=== PATIENT | female | born 1995 | race American Indian/Alaskan Native ===

== ENCOUNTER 2017-06-17 10:50 | Emergency (ER) | payer OTHER ==
[2017-06-17 10:57] VITALS: RESP 18; O2SAT 100
[2017-06-17] MEDS ORDERED: Sodium Chloride 0.9% 1,000 ML IV ONE (12:13)
[2017-06-17] MEDS ORDERED: Sodium Chloride 0.9% 1,000 ML ONE (12:29)
--- NOTE | 2017-06-17 12:30 | C.PDOC ---
History Of Present Illness 22 y/o female presents to ED with complaints of abdominal pain for 2 days with associated nausea, vomiting and diarrhea. Patient denies blood in stool, dysuria , hematuria, back pain, fever, chills or any other complaints at this time. Time Seen by Provider: 06/17/17 12:07 Chief Complaint (Nursing): Abdominal Pain History Per: Patient History/Exam Limitations: no limitations Onset/Duration Of Symptoms: Days Current Symptoms Are (Timing): Still Present Past Medical History Reviewed: Historical Data, Nursing Documentation, Vital Signs Vital Signs: Last Vital Signs Temp 99.6 F 06/17/17 15:21 Pulse 70 06/17/17 15:21 Resp 18 06/17/17 15:21 BP 142/76 06/17/17 15:21 Pulse Ox 100 06/17/17 15:24 - Medical History PMH: Back Problems (Scoliosis) Surgical History: No Surg Hx - [facility] Procedures MANUAL ASSIST DELIV NEC (11/23/13) REPAIR OB LACERATION NEC (11/23/13) Family History: States: No Known Family Hx - Social History Hx Tobacco Use: Yes Hx Alcohol Use: No Hx Substance Use: No - Immunization History Hx Tetanus Toxoid Vaccination: No Hx Influenza Vaccination: No Hx Pneumococcal Vaccination: No Review Of Systems Constitutional: Negative for: Fever, Chills Gastrointestinal: Positive for: Nausea, Vomiting, Abdominal Pain, Diarrhea. Negative for: Hematochezia Genitourinary: Negative for: Dysuria, Hematuria, Vaginal Bleeding Skin: Negative for: Rash Neurological: Negative for: Weakness, Numbness Physical Exam - Physical Exam Appears: Non-toxic, No Acute Distress Skin: Normal Color, Warm, Dry, No Rash Head: Atraumatic, Normacephalic Oral Mucosa: Moist Neck: Normal ROM, Supple Cardiovascular: Rhythm Regular Respiratory: Normal Breath Sounds, No Rales, No Rhonchi, No Wheezing Gastrointestinal/Abdominal: Soft, Tenderness (Mild non focal), No Guarding, No Rebound Back: No CVA Tenderness Extremity: Normal ROM, Capillary Refill (<2 seconds) Neurological/Psych: Oriented x3, Normal Motor, Normal Sensation ED Course And Treatment - Laboratory Results Result Diagrams: 06/17/17 12:30 06/17/17 12:30 O2 Sat by Pulse Oximetry: 100 (RA) Pulse Ox Interpretation: Normal Medical Decision Making Medical Decision Making: pt noted to be in er. iup confirmed. lmp "last month" pt tolerating po in er. advise outpt f/u and return precautions. pt asking for dc. refuses additonal iv fluids and antiemetic, minimal suprapubic ttp Disposition - Disposition Referrals: [facility] [Outside] [facility]. [employer] [facility] [Outside] Disposition: HOME/ ROUTINE Disposition Time: 15:16 Condition: STABLE Additional Instructions: please follow up with obgyn. return to er with worsening symptoms or concerns. Instructions: Threatened Miscarriage (ED), Hyperemesis Gravidarum (ED), Dehydration (ED) Forms: [facility] (Turkish), Work Excuse - Clinical Impression Clinical Impression: Abdominal pain, Threatened miscarriage - Scribe Statement The provider has reviewed the documentation as recorded by the Scribgaby Pollock All medical record entries made by the Angelitaibe were at my direction and personally dictated by me. I have reviewed the chart and agree that the record accurately reflects my personal performance of the history, physical exam, medical decision making, and the department course for this patient. I have also personally directed, reviewed, and agree with the discharge instructions and disposition.
[2017-06-17 12:35] LABS: BASO % 0.7 % (0.0-2.0); EOS # 0.1 K/uL (0.0-0.7); EOS % 1.4 % (0.0-4.0); HEMOGLOBIN 12.8 g/dL (11.0-16.0); LYMPH # 1.6 K/uL (1.0-4.3); LYMPH % 29.4 % (20.0-40.0); MEAN CORPUSCULAR HEMOGLOBIN 31.8 pg (27.0-31.0); MEAN CORPUSCULAR HGB CONC 34.1 g/dL (33.0-37.0); MEAN PLATELET VOLUME 7.9 fL (7.2-11.7); MONO # 0.7 K/uL (0.0-0.8); NEUT # 3.1 K/uL (1.8-7.0); NEUT % 55.5 % (50.0-75.0); NRBC % 0.2 % (0.0-2.0); RBC 4.01 Mil/uL (3.80-5.20); RED CELL DISTRIBUTION WIDTH 12.5 % (11.5-14.5); WHITE BLOOD COUNT 5.6 K/uL (4.8-10.8)
[2017-06-17 12:37] LABS: HCG,QUALITATIVE URINE POSITIVE (NEGATIVE); MEAN CELL VOLUME 93.3 fL (81.0-99.0)
[2017-06-17 12:42] LABS: INR 1.2
[2017-06-17 12:43] LABS: SQUAMOUS EPITHIAL 8 /hpf (0-5); URINE BACTERIA RARE (<OCC); URINE BILIRUBIN NEGATIVE (NEGATIVE); URINE BLOOD NEGATIVE (NEGATIVE); URINE CLARITY Clear (Clear); URINE COLOR Amber (YELLOW); URINE GLUCOSE (UA) NORMAL (Normal); URINE LEUKOCYTE ESTERASE NEG Leu/uL (Negative); URINE NITRATE NEGATIVE (NEGATIVE); URINE PROTEIN 1+ mg/dL (NEGATIVE)
[2017-06-17 12:50] LABS: ALB/GLOB RATIO 1.1 (1.0-2.1); ALBUMIN 3.8 g/dL (3.5-5.0); ALT/SGPT 19 U/L (9-52); AST/SGOT 19 U/L (14-36); BLOOD UREA NITROGEN 11 mg/dL (7-17); CALCIUM 8.3 mg/dl (8.6-10.4); GFR AFRICAN-AMERICAN > 60; GFR NON-AFRICAN AMERICAN > 60; LIPASE 58 U/L (23-300)
--- NOTE | 2017-06-17 14:42 | US ---
HISTORY: abd pain and COMPARISON: No relevant prior exams are available for comparison. TECHNIQUE: Grayscale and color Doppler sonographic images were obtained of the pelvis utilizing transvaginal approach. FINDINGS: UTERUS: Anteverted and normal in size measuring 10 x 5.1 x 6.4 cm cm. Cystic structure noted within the endometrial canal measuring 1.4 cm containing a pole with crown-rump length measuring 0.2 cm corresponding to a gestational age of 5 weeks 5 days. heartbeat of 113 beats per minute was seen. Normal-size yolk sac noted. CERVIX: Closed and measures 3.3 cm RIGHT OVARY: Measures 1.9 x 1.5 x 2.2 cm. Multiple follicles noted.Normal flow. LEFT OVARY: Measures 3.7 x 2.5 x 3.3 cm. Sonographically unremarkable Normal flow. FREE FLUID: No significant free fluid noted. OTHER FINDINGS: None IMPRESSION: Single live intrauterine gestation corresponding to a gestational age of 5 weeks 5 days.
[2017-06-17 15:22] VITALS: BP 142/76; PULSE 70; TEMP 99.6
== END 2017-06-17 15:30 | disposition home or self-care (01) ==
LOC: C.ER 10:50
DX: O20.0 Threatened abortion (principal); R10.9 Unspecified abdominal pain; Z3A.01 Less than 8 weeks gestation of pregnancy
CPT/HCPCS: 76817; 80053; 81001; 83690; 84702; 84703; 85025; 85610; 85730; 86850; 86900; 96361; 96374; 96375; 99284; C9113; J2405; J7040

== ENCOUNTER 2018-01-05 18:01 | Emergency (ER) | payer OTHER ==
[2018-01-05 18:49] VITALS: BP 136/91; PULSE 74; RESP 18; TEMP 99.4; O2SAT 100
--- NOTE | 2018-01-05 19:06 | C.PDOC ---
History Of Present Illness 22 y/o female presents to ED with c/o rash to upper lip noticed today when she woke up. Patient reports she had rash on arms 1 week ago that resolved, reports using new lip gloss unsure if cause of symptoms. Patient denies fever, chills, sob, wheezing or any other complaints at this time. Time Seen by Provider: 01/05/18 18:50 Chief Complaint (Nursing): Abnormal Skin Integrity History Per: Patient History/Exam Limitations: no limitations Onset/Duration Of Symptoms: Hrs Current Symptoms Are (Timing): Still Present Quality Of Symptoms: Itching Past Medical History Reviewed: Historical Data, Nursing Documentation, Vital Signs Vital Signs: Last Vital Signs Temp 99.4 F 01/05/18 18:42 Pulse 74 01/05/18 18:42 Resp 18 01/05/18 18:42 BP 136/91 H 01/05/18 18:42 Pulse Ox 100 01/05/18 19:51 - Medical History PMH: Back Problems (Scoliosis) Surgical History: No Surg Hx - [facility] Procedures MANUAL ASSIST DELIV NEC (11/23/13) REPAIR OB LACERATION NEC (11/23/13) Family History: States: No Known Family Hx - Social History Hx Tobacco Use: Yes Hx Alcohol Use: No Hx Substance Use: No - Immunization History Hx Tetanus Toxoid Vaccination: No Hx Influenza Vaccination: No Hx Pneumococcal Vaccination: No Review Of Systems Constitutional: Negative for: Fever, Chills ENT: Negative for: Mouth Swelling Respiratory: Negative for: Cough, Shortness of Breath Skin: Positive for: Rash (upper lip) Physical Exam - Physical Exam Appears: Non-toxic, No Acute Distress Skin: Warm, Dry Head: Atraumatic, Normacephalic Eye(s): bilateral: Normal Inspection, PERRL Oral Mucosa: Moist Tongue: Normal Appearing, No Swelling Lips: No Abrasion, No Lesions, Other (fine rash to upper lip. no vesicles or pustules noted) Throat: Normal, No Erythema, No Exudate Neck: Normal Neurological/Psych: Oriented x3, Normal Speech, Normal Cognition Gait: Steady ED Course And Treatment O2 Sat by Pulse Oximetry: 100 (RA) Pulse Ox Interpretation: Normal Progress Note: Patient instructed to take Benadryl and discontinue any irritative lip gloos. 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 - Scribe Statement The provider has reviewed the documentation as recorded by the Scribgaby Pollock All medical record entries made by the Dandy were at my direction and personally dictated by me. I have reviewed the chart and agree that the record accurately reflects my personal performance of the history, physical exam, medical decision making, and the department course for this patient. I have also personally directed, reviewed, and agree with the discharge instructions and disposition.
== END 2018-01-05 19:21 | disposition home or self-care (01) ==
LOC: C.ER 18:01
DX: R21 Rash and other nonspecific skin eruption (principal)

== ENCOUNTER 2018-03-09 17:47 | Emergency (ER) | payer OTHER ==
[2018-03-09 17:59] VITALS: RESP 16; TEMP 99; O2SAT 99
--- NOTE | 2018-03-09 18:08 | C.PDOC ---
History Of Present Illness 23 y/o female brought in by ambulance for evaluation of head inquiry sustained at work prior to arrival. 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 Currently patient is complaining of a headache. Denies any LOC, syncope, severe headache, nausea, vomiting, neck pain, chest pain, SOB, numbness, weakness, or visual changes. - HPI Time Seen by Provider: 03/09/18 17:47 Chief Complaint (Nursing): Trauma History Per: Patient History/Exam Limitations: no limitations Injury Occurred (Timing): Hours Ago: (1) Severity: Moderate Associated Symptoms: Dizziness Past Medical History Reviewed: Historical Data, Nursing Documentation, Vital Signs Vital Signs: Last Vital Signs Temp 99 F 03/09/18 17:54 Pulse 88 03/09/18 17:54 Resp 16 03/09/18 17:54 BP 144/99 H 03/09/18 17:54 Pulse Ox 99 03/09/18 18:41 - Medical History PMH: Back Problems (Scoliosis) - [facility] Procedures MANUAL ASSIST DELIV NEC (11/23/13) REPAIR OB LACERATION NEC (11/23/13) Family History: States: No Known Family Hx - Social History Hx Tobacco Use: Yes Hx Alcohol Use: No Hx Substance Use: No - Immunization History Hx Tetanus Toxoid Vaccination: No Hx Influenza Vaccination: No Hx Pneumococcal Vaccination: No Review Of Systems Except As Marked, All Systems Reviewed And Found Negative. Constitutional: Negative for: Fever Eyes: Negative for: Vision Change Cardiovascular: Negative for: Chest Pain Respiratory: Negative for: Shortness of Breath Gastrointestinal: Negative for: Nausea, Vomiting Musculoskeletal: Negative for: Neck Pain Skin: Negative for: Lesions Neurological: Positive for: Headache, Dizziness. Negative for: Weakness, Numbness, Incoordination, Change in Speech, Confusion, Other (LOC) Physical Exam - Physical Exam Appears: Well, Non-toxic, No Acute Distress Skin: Normal Color, Warm, Dry Head: Normacephalic, Tenderness (Right parietal scalp. No edema, no palpable deformity.), No Swelling, No Abrasion, No Laceration Eye(s): bilateral: PERRL, EOMI Ear(s): Bilateral: Normal Nose: No Flaring, No Discharge, No Deformity Oral Mucosa: Moist Tongue: Normal Appearing Lips: Normal Appearing Throat: No Erythema Neck: Normal ROM, Trachea Midline, No Midline Cervical Tenderness, No Paracervical Tenderness, No Step Off Deformity, Supple Chest: Symmetrical Cardiovascular: Rhythm Regular Respiratory: No Decreased Breath Sounds, No Accessory Muscle Use, No Stridor, No Wheezing Gastrointestinal/Abdominal: Soft, No Tenderness Back: No Vertebral Tenderness Extremity: Normal ROM, No Tenderness, No Deformity, No Swelling Extremity: Bilateral: Atraumatic Neurological/Psych: Oriented x3, Normal Speech, Normal Motor, Normal Sensation, Normal Reflexes ED Course And Treatment - Laboratory Results Urine POC: Negative O2 Sat by Pulse Oximetry: 99 (RA) Pulse Ox Interpretation: Normal - CT Scan/US CT head w/o contrast Other Rad Studies (CT/US): Radiology Report Reviewed CT/US Interpretation: IMPRESSION: 1. No intracranial hemorrhage. 2. Incidental/non-acute findings are described above. Thank you for allowing us to participate in the care of your patient. Dictated and Authenticated by: Erik Eldridge MD. 03/09/2018 7:33 PM Eastern Time ([place] & [place]) Progress Note: Patient treated with Zofran ODT and Tylenol. Head CT ordered. On re-evaluation, pt is afebrile, hemodynamicaly stable. non-toxic. AMbulatory in ED with stable gait. head: mild contusion noted to Right parietal scalp. No edema, no palpable defomrity. ENT: No acute findings. Neck: Supple, (-) midline tenderness. Neurologicaly intact. CT head review- no acute abnormalities. Pt has clinical findings c/w head injury. Pt advised OBS 48 hrs for any sign of head injury-return to ED if any new changes. ref. to f/u with PMD in 2-3 days for re-eavl. Disposition Counseled Patient/Family Regarding: Studies Performed, Diagnosis, Need For Followup - Disposition Referrals: [facility] [Outside] Disposition: HOME/ ROUTINE Disposition Time: 19:35 Condition: STABLE Additional Instructions: OBSERVE 48 HOURS FOR ANY SIGN OF HEAD INJURY-INTRACTABLE HEADACHE, VOMITING, LETHARGY OR ANY OTHER NEW CHANGES-RETURN TO ED FOR RE-EVALUATION. "Brain rest" for 2-3 days, avoid physical activity Tylenol as need for headache Follow up with PMD in 2-3 days for re-evaluation. return to Ed if any worsening or new changes. 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 - Scribe Statement The provider has reviewed the documentation as recorded by the Scribe (Kirstin Goodson) All medical record entries made by the Scribe were at my direction and personally dictated by me. I have reviewed the chart and agree that the record accurately reflects my personal performance of the history, physical exam, medical decision making, and the department course for this patient. I have also personally directed, reviewed, and agree with the discharge instructions and disposition.
[2018-03-09 19:47] VITALS: BP 129/84; PULSE 78
--- NOTE | 2018-03-10 07:48 | CT ---
Date of service: 03/09/2018 PROCEDURE: CT HEAD WITHOUT CONTRAST. HISTORY: head injury, dizziness COMPARISON: None available. TECHNIQUE: Axial computed tomography images were obtained through the head/brain without intravenous contrast. Radiation dose: Total exam DLP = 1124 mGy-cm. This CT exam was performed using one or more of the following dose reduction techniques: Automated exposure control, adjustment of the mA and/or kV according to patient size, and/or use of iterative reconstruction technique. FINDINGS: HEMORRHAGE: No intracranial hemorrhage. BRAIN: Mild atrophy. VENTRICLES: Unremarkable. No hydrocephalus. CALVARIUM: Unremarkable. PARANASAL SINUSES: Unremarkable as visualized. No significant inflammatory changes. MASTOID AIR CELLS: Unremarkable as visualized. No inflammatory changes. OTHER FINDINGS: None. IMPRESSION: No acute intracranial hemorrhage. If symptoms persists, consider correlation with MRI. These findings were preliminarily reported at 7:33 p.m. on 03/09/[address] Erik Eldridge from [facility].
== END 2018-03-09 19:46 | disposition home or self-care (01) ==
LOC: C.ER 17:47
DX: S09.90XA Unspecified injury of head, initial encounter (principal); W22.8XXA Striking against or struck by other objects, initial encounter; Y92.89 Other specified places as the place of occurrence of the external cause; Y99.0 Civilian activity done for income or pay

== ENCOUNTER 2018-08-01 10:26 | Emergency (ER) | payer OTHER ==
[2018-08-01 10:39] VITALS: RESP 18; TEMP 98.3
--- NOTE | 2018-08-01 12:32 | C.PDOC ---
History Of Present Illness 23 y/o female comes in to ED complaining of low back pain x2 days. Patient states she has history of scoliosis and had corrective surgery about 10 years ago. She reports she slipped on ice and fell to her back 2 days ago, and since then shes been having low back pain with occasional numbness and tingling down both legs. Patient denies any urinary retention, bowel or bladder incontinence, abdominal pain, or head injury. Time Seen by Provider: 08/01/18 10:43 Chief Complaint (Nursing): Back Pain History Per: Patient History/Exam Limitations: no limitations Onset/Duration Of Symptoms: Days Current Symptoms Are (Timing): Still Present Past Medical History Reviewed: Historical Data, Nursing Documentation, Vital Signs Vital Signs: Last Vital Signs Temp 98.3 F 08/01/18 10:36 Pulse 77 08/01/18 10:36 Resp 18 08/01/18 10:36 BP 117/81 08/01/18 10:36 Pulse Ox 99 08/01/18 10:36 - Medical History PMH: Back Problems (Scoliosis) - [facility] Procedures MANUAL ASSIST DELIV NEC (11/23/13) REPAIR OB LACERATION NEC (11/23/13) Family History: States: No Known Family Hx - Social History Hx Tobacco Use: Yes Hx Alcohol Use: No Hx Substance Use: No - Immunization History Hx Tetanus Toxoid Vaccination: No Hx Influenza Vaccination: No Hx Pneumococcal Vaccination: No Review Of Systems Gastrointestinal: Negative for: Abdominal Pain Genitourinary: Negative for: Dysuria, Hematuria, Other (urinary retention) Musculoskeletal: Positive for: Back Pain (lower back) Neurological: Positive for: Numbness (and tingling to bilateral legs). Negative for: Dizziness Physical Exam - Physical Exam Appears: Non-toxic, Other (In moderate pain) Skin: Warm, Dry Head: Atraumatic, Normacephalic Eye(s): bilateral: Normal Inspection Oral Mucosa: Moist Cardiovascular: Rhythm Regular, No Murmur Respiratory: Normal Breath Sounds, No Rales, No Rhonchi, No Wheezing Gastrointestinal/Abdominal: Soft, No Tenderness Back: No CVA Tenderness, Other (large midline surgical scar in the thoracic and upper lumbar spine; tender to palpation at L3 and L4 level) Extremity: Bilateral: Normal ROM Neurological/Psych: Oriented x3, Normal Speech, Normal Sensation ED Course And Treatment O2 Sat by Pulse Oximetry: 99 (RA) Pulse Ox Interpretation: Normal - Other Rad Lumbar Spine XR X-Ray: Read By Radiologist Interpretation: FINDINGS: BONES: Normal alignment. No listhesis. No fracture. Status post posterior fusion at the lower thoracic and upper lumbar spine. DISC SPACES: Unremarkable. OTHER FINDINGS: None. IMPRESSION: No radiographic evidence of acute pathology. Again noted are posterior internal fixation and fusion of the lower thoracic and upper lumbar spine vertebrae. Progress Note: Lumbar spine XR ordered and showed no fracture or listhesis, hardware intact. Gave patient toradol IM, valium PO, and prednisone PO. On re- evaluation, patient is feeling better and is in no acute distress. Patient will be discharged home. Disposition Counseled Patient/Family Regarding: Studies Performed, Diagnosis, Need For Followup, Rx Given - Disposition Referrals: [facility] [Outside] Anam Reid MD [Medical Doctor] - Disposition: HOME/ ROUTINE Disposition Time: 12:30 Condition: STABLE Additional Instructions: FOLLOW UP WITH YOUR PRIMARY DOCTOR OR IN MEDICAL CLINIC IN 1-2 DAYS USE MEDICATIONS DIRECTED RETURN TO ER IF SYMPTOMS WORSEN Prescriptions: Cyclobenzaprine [Flexeril] 10 mg PO BID PRN #15 tab PRN Reason: Muscle Spasm Lidocaine 5% [Lidoderm] 1 patch TOP DAILY PRN #15 patch PRN Reason: pain Naproxen [Naprosyn] 1 tab PO BID PRN #25 tab PRN Reason: Pain predniSONE [predniSONE Tab] 40 mg PO DAILY #6 tab Instructions: Low Back Pain (DC) Forms: [facility] (American), Work Excuse Print Language: SAMMARINESE - Clinical Impression Clinical Impression: Lumbar sprain - Scribe Statement The provider has reviewed the documentation as recorded by the Dandy Mckeon Provider Attestation: All medical record entries made by the Dandy were at my direction and personally dictated by me. I have reviewed the chart and agree that the record accurately reflects my personal performance of the history, physical exam, medical decision making, and the department course for this patient. I have also personally directed, reviewed, and agree with the discharge instructions and disposition.
[2018-08-01 12:42] VITALS: BP 113/76; PULSE 66
[2018-08-01 15:47] VITALS: O2SAT 99
--- NOTE | 2018-08-01 17:14 | RAD ---
Date of service: 08/01/2018 PROCEDURE: Radiographs of the Lumbar Spine. HISTORY: low back pain, h/o scoliosis surgery, r/o fx COMPARISON: Comparison is made to the previous CT of the abdomen and pelvis dated 09/26/2015 FINDINGS: BONES: Normal alignment. No listhesis. No fracture. Status post posterior fusion at the lower thoracic and upper lumbar spine DISC SPACES: Unremarkable. OTHER FINDINGS: None. IMPRESSION: No radiographic evidence of acute pathology. Again noted are posterior internal fixation and fusion of the lower thoracic and upper lumbar spine vertebrae.
== END 2018-08-01 12:44 | disposition home or self-care (01) ==
LOC: C.ER 10:26
DX: S33.5XXA Sprain of ligaments of lumbar spine, initial encounter (principal); W00.0XXA Fall on same level due to ice and snow, initial encounter; Z72.0 Tobacco use
CPT/HCPCS: 72100; 81025; 96372; 99283; J1885